=== PATIENT | male | born 1995 | race Caucasian/White ===

== ENCOUNTER 2020-10-07 17:08 | Emergency (ER) | payer MEDICAID ==
[2020-10-07] MEDS ORDERED: LORazepam 2 MG/ML SDV IM ONE (18:03)
[2020-10-07 18:27] VITALS: BP 121/89; PULSE 138
--- NOTE | 2020-10-07 19:16 | EDM.PDOC ---
ED HPI GENERAL MEDICAL PROBLEM - General Chief Complaint: Respiratory Problem Stated Complaint: HURTS TO BREATH Time Seen by Provider: 10/07/20 18:00 Source of Information: Reports: Patient History Limitations: Reports: Intoxication, Physical Impairment - History of Present Illness INITIAL COMMENTS - FREE TEXT/NARRATIVE: 25-year-old male arrives acutely hyperventilating and intoxicated with methamphetamine which he has been using daily for at least a week. He has a history of panic attacks and this was started about an hour ago with chest pain and tightness and now he arrives with cramps in his arms chest and short of breath. He is very agitated and unable to sit still. Mildly hypertensive and also tachycardic. No nausea vomiting. Onset: Unknown/Unsure Associated Symptoms: Reports: Confusion (Somewhat confused), Other (Pleuritic pain with breathing, especially substernal) - Related Data Allergies Allergy/AdvReac Type Severity Reaction Status Date / Time Penicillins Allergy Hives Verified 10/07/20 17:39 Home Meds: Home Meds NK [No Known Home Meds] 09/11/15 [History] Past Medical History Other Musculoskeletal History: right hand Social & Family History - Tobacco Use Tobacco Use Status *Q: Heavy Tobacco User Years of Tobacco use: 7 Packs/Tins Daily: 2 - Caffeine Use Caffeine Use: Reports: Coffee, Energy Drinks - Recreational Drug Use Recreational Drug Use: Yes Recreational Drug Type: Reports: Methamphetamine Recreational Drug Use Frequency: Daily ED ROS GENERAL - Review of Systems Review Of Systems: See Below Reason Not Obtained: Very difficult to obtain with accuracy because of his intoxicatio Constitutional: Denies: Fever Respiratory: Reports: Shortness of Breath, Pleuritic Chest Pain Cardiovascular: Reports: Chest Pain GI/Abdominal: Denies: Nausea, Vomiting : Reports: No Symptoms Musculoskeletal: Reports: Other (Arms and legs hurt) Skin: Reports: Other (Chronic scarring acne on his back face and chest) Neurological: Reports: Weakness, Other (Feels shaky, anxious). Denies: Headache Psychiatric: Reports: Anxiety ED EXAM, GENERAL - Physical Exam Exam: See Below Exam Limited By: Physical Impairment (Acutely hyperventilating, extremely anxious) General Appearance: Alert, Anxious, Moderate Distress Eye Exam: Bilateral Eye: PERRL Head: Atraumatic Respiratory/Chest: Lungs Clear Cardiovascular: Regular Rate, Rhythm, Tachycardia GI/Abdominal: Non-Tender Extremities: Normal Inspection Neurological: Alert, Inattentive (Having trouble keeping a train of thought and answering questions appropriately), Confused Skin Exam: Warm, Dry, Other (Advanced acne is present on his shoulders and face, significant scarring from past acne is present) Course - Vital Signs Last Recorded V/S: Last Vital Signs Temp 98.7 F 10/07/20 17:38 Pulse 138 H 10/07/20 18:26 Resp 12 10/07/20 18:26 BP 121/89 10/07/20 18:26 Pulse Ox 99 10/07/20 18:26 - Orders/Labs/Meds Labs: Laboratory Tests 10/07/20 10/07/20 10/07/20 Range/Units 18:28 18:28 18:35 WBC 9.0 (4.5-11.0) K/uL RBC 5.27 (4.30-5.90) M/uL Hgb 16.5 H (12.0-15.0) g/dL Hct 46.6 (40.0-54.0) % MCV 88 (80-98) fL MCH 31 (27-31) pg MCHC 35 (32-36) % Plt Count 339 (150-400) K/uL Neut % (Auto) 67 H (36-66) % Lymph % (Auto) 19 L (24-44) % Wilson % (Auto) 12 H (2-6) % Eos % (Auto) 1 L (2-4) % Baso % (Auto) 1 (0-1) % Puncture Site Rt radial ABG pH 7.683 H* (7.350-7.450) ABG pCO2 15.9 L* (35.0-42.0) mmHg ABG pO2 110.0 H (75.0-100.0) mmHg ABG HCO3 19.4 L (22.0-26.0) mmol/L ABG Total CO2 15.7 L (23.0-27.0) mmol/L ABG O2 Saturation 99.2 H (95.0-98.0) % ABG O2 Content 21.7 (15.0-23.0) %vol ABG Base Excess 1.8 mm/L ABG Hemoglobin 15.9 (13.5-18.0) g/dL ABG Oxyhemoglobin 96.9 % ABG Carboxyhemoglobin 1.4 (0.0-1.6) % ABG Methemoglobin 0.9 % Cornell Test Pass O2 Delivery Device Room air Sodium 137 L (140-148) mmol/L Potassium 3.4 L (3.6-5.2) mmol/L Chloride 96 L (100-108) mmol/L Carbon Dioxide 24 (21-32) mmol/L Anion Gap 20.4 H (5.0-14.0) mmol/L BUN 16 (7-18) mg/dL Creatinine 1.5 H (0.8-1.3) mg/dL Est Cr Clr Drug Dosing 83.35 mL/min Estimated GFR (MDRD) 57 L (>60) Glucose 115 H (74-106) mg/dL Calcium 10.0 (8.5-10.1) mg/dL Meds: Medications Discontinued Medications Generic Name Dose Route Start Last Admin Trade Name Freq PRN Reason Stop Dose Admin Lorazepam 2 mg 10/07/20 18:03 10/07/20 18:09 Ativan IM 10/07/20 18:04 2 mg ONETIME ONE Administration - Re-Assessments/Exams Free Text/Narrative Re-Assessment/Exam: 10/07/20 19:14 Patient was given 2 mg of IM Ativan just to calm down enough to get some lab. ABGs were then drawn which showed PCO2 of only 16 and pH of 7.683. We tried to get him to rebreathing a bag and wear his mask to stabilize his CO2 but he would not cooperate. He slowly improved. 10/07/20 19:16 CBC was reassuring, white count was normal, electrolytes were reasonable. He continued to slowly improve. 10/07/20 19:41 Over the course of 45 minutes the patient calmed down significantly, breathing normalized and his symptoms markedly improved. He will be discharged to the care of his parents when they arrive. 10/07/20 20:24 Patient did not want to cooperate and wanted to be discharged, so he was discharged to the waiting room to wait for his parents. Departure - Departure Time of Disposition: 20:25 Disposition: Home, Self-Care 01 Clinical Impression: Methamphetamine intoxication, Acute hyperventilation syndrome - Discharge Information Instructions: Amphetamines Use Disorder, Hyperventilation Referrals: PCP,None [Primary Care Provider] - Forms: ED Department Discharge Care Plan Goals: Do not use methamphetamine in the future, it will exacerbate your anxiety, cause panic attacks, will rapidly age you and ultimately cause your . Sepsis Event Note (ED) - Evaluation Sepsis Screening Result: No Definite Risk - Focused Exam Vital Signs: Vital Signs Temp Pulse Resp BP Pulse Ox 10/07/20 18:26 138 H 12 121/89 99 10/07/20 17:38 98.7 F 127 H 28 H 168/95 H 100 10/07/20 17:27 98.7 F 104 H 28 H 168/95 H 100
== END 2020-10-07 20:25 | disposition home or self-care (01) ==
LOC: JP.ED 17:08
DX: F45.8 Other somatoform disorders (principal); F15.129 Other stimulant abuse with intoxication, unspecified; F17.210 Nicotine dependence, cigarettes, uncomplicated; R41.0 Disorientation, unspecified; Z88.0 Allergy status to penicillin
CPT/HCPCS: 36415; 36600; 80048; 82803; 85025; 96372; 99283; 99284; J2060